=== PATIENT | male | born 1965 | race Caucasian/White ===

== ENCOUNTER 2021-10-26 14:36 | Observation (INO) ==
--- NOTE | 2021-10-26 16:18 | DR.GENAD ---
HPI Time Seen Time Seen by Provider: 10/26/21 16:16 PCP Primary Care Physician: ALEX ROSAS Complaint/Symptoms Chief Complaint Doctors Comments: patient c/o r flank and rlq pain for one week. HAD FEVER YESTERDAY. WAS SEEN BY PCP THIS AM AND TOLD TO GO TO ER FOR FURTHER EVALUTION. Chief Complaint:: PT C/O 1 WEEK HISTORY OF RIGHT FLANK PAIN DESCRIBED CONSTANT ACHING THAT IS WORSE WITH MOVEMENT AND IS ASSOCIATED WITH NAUSEA, VOMITING, AND CONSTIPATION WELL INTERMITTENT FEVER UP TO 104.1 COVID-19 Coronavirus risk:travel/contact w/high risk person: No Has patient experienced Coronavirus symptoms: No Source History Provided: Patient Mode of Arrival Mode of Arrival: Ambulatory Timing Onset of Chief Complaint: 10/26/21 PMH PMH Past Medical History: Yes Past Medical History: Arthritis Past Surgical History: Yes Surgical History: Ortho Surgery Family History History of Family Medical Conditions: Yes Family Medical History: OR and Coronary Artery Disease Social History Does patient currently use any type of tobacco product: Yes Have you used tobacco products in the last 12 months: Yes Type of Tobacco Use: Cigarettes Does any household member use tobacco: No Alcohol Use: Rarely Do you use any recreational Drugs:: No Lives With: Spouse Lives Where: Home Travel Risk Coronavirus risk:travel/contact w/high risk person: No Has patient experienced Coronavirus symptoms: No Infectious screening In the last 2 months have you had wt loss of >10#?: NO Have you had fever, night sweats or hemotysis?: No Have you traveled outside the country in the last 6 months?: No Isolation: Standard ROS Review of Systems Constitutional: Other (RLQ ABDOMINAL WITH REBOUND) Eyes: No Symptoms Reported ENTM: No Symptoms Reported Respiratoy: No Symptoms Reported Cardiovascular: No Symptoms Reported Gastrointestinal/Abdominal: Abdominal Pain and Nausea Genitourinary: No Symptoms Reported Neurological: No Symptoms Reported Musculoskeletal: No Symptoms Reported Integumentary: No Symptoms Reported Hematologic/Lymphatic: No Symptoms Reported Endocrine: No Symptoms Reported Psychiatric: No Symptoms Reported PE Vital Signs Vitals: Temperature 98.7 F Pulse Rate [Left] 87 Pulse Rate 80 Respiratory Rate 20 Blood Pressure [Left Arm] 151/65 Blood Pressure 147/70 O2 Sat by Pulse Oximetry 96 General Limitations: No Limitations General Appearance: In Distress (MODERATE DISTRESS) Head Head Exam: Normal Inspection Eyes Eye exam: Normal Appearance, PERRL and EOMI ENT ENT Exam: Normal Exam, Normal Oropharynx and Normal External Ear Exam TM/Canal Exam: Bilateral: Normal Nose Exam: Normal Nose Exam Mouth Exam: Normal Inspection Throat Exam: Normal Inspection Neck Neck Exam: Normal Inspection and Full ROM Chest Chest Inspection: Normal Inspection and Symmetric Chest Wall Rise Respiratory Respiratory Exam: Normal Lung Sounds Bilat Respiratory Exam: Bilateral: Clear to Auscultation Cardiovascular Cardiovascular Exam: Regular Rate and Normal Rhythm Abdominal Exam Abdominal Exam: Normal Bowel Sounds, Soft, Tenderness and Rebound Abdominal Tenderness: RLQ Extremities Extremities Exam: Normal Inspection and Full ROM Back Back Exam: Normal Inspection and Full ROM Neurologic Neurological Exam: Alert, Oriented X3 and CN II-XII Intact Skin Skin Exam: Warm, Dry and Intact MDM Differential Diagnosis Differential Diagnosis: APPENDICITIS,BOWEL OBSTRUCTION,CONSTIPATION COURSE Treatment Treatment: PATIENT WAS FOUND TO HAVE ACUTE APPENDICITIS ON CT OF ABDOMEN AND PELVIS. PATIENT WAS TOLD OF THE RESULTS AND TOLD OF THE INTENT TO CONTACT SURGEON KICK PRESS SETTER FOR FURTHER EVALUATION. THE PATIENT WAS AGREABLE TO THE INTENT. CONTACT WAS MADE WITH DR WHITE AT 830 PM AND HE STATED TO ADMIT THE PATEIENT BUT GET EKG AND CHEST XRAY AND START ON ZOSYN AND KEEP NPO. WILL START NACL AT 100CC/HR. ROR Labs Reviewed Laboratory Results Reviewed?: Yes Result Diagrams: 10/26/21 16:35 10/26/21 16:35 Laboratory: WBC 8.8 X10^3/uL (3.6-10.0) 10/26/21 16:35 RBC 4.36 X10^6/uL (4.7-6.0) L 10/26/21 16:35 Hgb 14.1 g/dL (13.5-18.0) 10/26/21 16:35 Hct 40.4 % (42.0-54.0) L 10/26/21 16:35 MCV 92.6 fL (80.0-100.0) 10/26/21 16:35 MCH 32.4 pg (27.0-34.0) 10/26/21 16:35 MCHC 35.0 g/dL (33.0-35.0) 10/26/21 16:35 RDW 13.1 % (11.6-16.5) 10/26/21 16:35 Plt Count 159 X10^3/uL (150.0-450.0) 10/26/21 16:35 MPV 9.3 fL (7.4-11.0) 10/26/21 16:35 Neut % (Auto) 66.3 % (42.0-75.0) 10/26/21 16:35 Lymph % (Auto) 24.8 % (21.0-51.0) 10/26/21 16:35 [place] % (Auto) 6.1 % (0.0-13.0) 10/26/21 16:35 Eos % (Auto) 1.8 % (0.9-2.9) 10/26/21 16:35 Baso % (Auto) 1.0 % (0.2-1.0) 10/26/21 16:35 Neut # (Auto) 5.8 x10^3/uL (2.2-4.8) H 10/26/21 16:35 Lymph # (Auto) 2.2 X10^3/uL (1.3-2.9) 10/26/21 16:35 [place] # (Auto) 0.5 x10^3/uL (0.3-0.8) 10/26/21 16:35 Eos # (Auto) 0.2 x10^3/uL (0.0-0.2) 10/26/21 16:35 Baso # (Auto) 0.1 X10^3/uL (0.0-0.1) 10/26/21 16:35 Absolute Nucleated RBC 0.1 /100WBC 10/26/21 16:35 Sodium 138 mmol/L (136-145) 10/26/21 16:35 Corrected Sodium 138 mmol/L (136-145) 10/26/21 16:35 Potassium 3.7 mmol/L (3.5-5.1) 10/26/21 16:35 Chloride 103 mmol/L (98-107) 10/26/21 16:35 Carbon Dioxide 28.1 mmol/L (21-32) 10/26/21 16:35 BUN 12 mg/dL (7-18) 10/26/21 16:35 Creatinine 1.11 mg/dL (0.70-1.30) 10/26/21 16:35 Est GFR (MDRD) Af Amer > 60 (>60) 10/26/21 16:35 Est GFR (MDRD) Non-Af > 60 (>60) 10/26/21 16:35 Glucose 115 mg/dL (65-99) H 10/26/21 16:35 Calcium 8.1 mg/dL (8.5-10.1) L 10/26/21 16:35 Corrected Calcium 8.7 mg/dL (8.5-10.1) 10/26/21 16:35 Total Bilirubin 0.30 mg/dL (0.2-1.0) 10/26/21 16:35 AST 26 Units/L (15-37) 10/26/21 16:35 ALT 43 Units/L (12-78) 10/26/21 16:35 Alkaline Phosphatase 86 Units/L (46-116) 10/26/21 16:35 Total Protein 7.1 g/dL (6.4-8.2) 10/26/21 16:35 Albumin 3.2 g/dL (3.4-5.0) L 10/26/21 16:35 Globulin 3.9 g/dL (2.5-4.5) 10/26/21 16:35 Albumin/Globulin Ratio 0.8 Ratio (1.1-2.1) L 10/26/21 16:35 Amylase 48 Units/L (25-115) 10/26/21 16:35 Lipase 186 Units/L (73-393) 10/26/21 16:35 Specimen Type Clean catch urine 10/26/21 16:58 Urine Color Yellow (YELLOW) 10/26/21 16:58 Urine Appearance Clear (CLEAR) 10/26/21 16:58 Urine pH 5.0 (5.0 - 8.0) 10/26/21 16:58 Ur Specific [place] 1.025 (1.000-1.030) 10/26/21 16:58 Urine Protein 1+ (NEGATIVE) 10/26/21 16:58 Urine Glucose (UA) Negative (NEGATIVE) 10/26/21 16:58 Urine Ketones 1+ (NEGATIVE) 10/26/21 16:58 Urine Blood 1+ (NEGATIVE) 10/26/21 16:58 Urine Nitrite Negative (NEGATIVE) 10/26/21 16:58 Urine Bilirubin Negative (NEGATIVE) 10/26/21 16:58 Urine Urobilinogen Normal (NORMAL) 10/26/21 16:58 Ur Leukocyte Esterase 1+ (NEGATIVE) 10/26/21 16:58 Urine RBC 3-5 /HPF (0-3) A 10/26/21 16:58 Urine WBC 0-2 /HPF (0-5) 10/26/21 16:58 Ur Squamous Epith Cells Rare /HPF (NEGATIVE) 10/26/21 16:58 Calcium Oxalate Crystal Rare /HPF (NEGATIVE) 10/26/21 16:58 Urine Bacteria Negative /HPF (NEGATIVE) 10/26/21 16:58 Urine Mucus Rare /HPF (NEGATIVE) 10/26/21 16:58 Ur Culture Indicated? No/not indicated 10/26/21 16:58 Opioid Opioid Risk Tool Age (Raymundo box if 16-45): No History of Preadolescent Sexual Abuse: No Total: 0 Total Score Risk Category: Low Risk Copyright: Carlos SOOD predicting aberrant behaviors Discharge Plan Diagnosis Discharge Problem: Acute appendicitis Discharge Plan Patient Disposition: ADMITTED INPATIENT Condition: Stable Prescriptions: No Action gabapentin 300 mg capsule 1 cap PO PRN PRN hydroxyzine HCl 25 mg tablet 1 tab PO PRN PRN Victoza 2-Cristian 0.6 mg/0.1 mL (18 mg/3 mL) Pen Injector 1.2 mg SUBCUT QAM Health Concerns: Post Hospitalization: new medications and changes needed to prevent readmission or further decline. Pt educated and given instructions on all concerns. Plan of Treatment: Continue with present treatment and follow up plan. Pt is to keep follow up appointment as instructed and take medications as ordered. Orders to Discharge Patient Discharge Orders: Transfer (Routine); Ordered 10/26/21 Ordered By: Jacob Walls Follow ups/Referrals Follow ups/Referrals: ALEX ROSAS [Primary Care Provider] - 3 days Instructions Stand Alone Forms: Precautions for COVID19, [facility], Patient Portal, Social Distancing
[2021-10-26 16:52] LABS: BASOPHILS # (AUTO) 0.1 X10^3/uL (0.0-0.1); EOSINOPHILS # (AUTO) 0.2 x10^3/uL (0.0-0.2); EOSINOPHILS % (AUTO) 1.8 % (0.9-2.9); HEMATOCRIT 40.4 % (42.0-54.0); HEMOGLOBIN 14.1 g/dL (13.5-18.0); LYMPHOCYTES # (AUTO) 2.2 X10^3/uL (1.3-2.9); LYMPHOCYTES % (AUTO) 24.8 % (21.0-51.0); MEAN CORPUSCULAR HEMOGLOBIN 32.4 pg (27.0-34.0); MEAN CORPUSCULAR VOLUME 92.6 fL (80.0-100.0); MEAN PLATELET VOLUME 9.3 fL (7.4-11.0); MONOCYTES # (AUTO) 0.5 x10^3/uL (0.3-0.8); MONOCYTES % (AUTO) 6.1 % (0.0-13.0); NEUTROPHILS # (AUTO) 5.8 x10^3/uL (2.2-4.8); NEUTROPHILS % (AUTO) 66.3 % (42.0-75.0); RED BLOOD COUNT 4.36 X10^6/uL (4.7-6.0); RED CELL DISTRIBUTION WIDTH 13.1 % (11.6-16.5); WHITE BLOOD COUNT 8.8 X10^3/uL (3.6-10.0)
[2021-10-26 17:04] LABS: ALANINE AMINOTRANSFERASE 43 Units/L (12-78); ALBUMIN 3.2 g/dL (3.4-5.0); ALKALINE PHOSPHATASE 86 Units/L (46-116); AMYLASE 48 Units/L (25-115); ASPARTATE AMINO TRANSFERASE 26 Units/L (15-37); BLOOD UREA NITROGEN 12 mg/dL (7-18); CALCIUM 8.1 mg/dL (8.5-10.1); CARBON DIOXIDE 28.1 mmol/L (21-32); CHLORIDE 103 mmol/L (98-107); COR CA(FOR HYPOALB) 8.7 mg/dL (8.5-10.1); COR NA(FOR HYPERGLY) 138 mmol/L (136-145); CREATININE 1.11 mg/dL (0.70-1.30); LIPASE 186 Units/L (73-393); SODIUM 138 mmol/L (136-145); TOTAL PROTEIN 7.1 g/dL (6.4-8.2); eGFR NON BLACK RACES > 60 (>60)
[2021-10-26 17:34] LABS: BILIRUBIN,URINE NEGATIVE (NEGATIVE); BLOOD/HEMOGLOBIN,URINE 1+ (NEGATIVE); GLUCOSE, URINE NEGATIVE (NEGATIVE); KETONES,URINE 1+ (NEGATIVE); LEUKOCYTE ESTERASE ,URINE 1+ (NEGATIVE); NITRITES,URINE NEGATIVE (NEGATIVE); PROTEIN,URINE 1+ (NEGATIVE); UROBILINOGEN,URINE NORMAL (NORMAL)
[2021-10-26 17:47] LABS: APPEARANCE,URINE CLEAR (CLEAR); BACTERIA,URINE NEGATIVE /HPF (NEGATIVE); COLOR,URINE YELLOW (YELLOW); SQUAMOUS EPITHELIAL CELL,UR RARE /HPF (NEGATIVE)
[2021-10-26 17:48] LABS: CALCIUM OXALATE CRYSTALS,UR RARE /HPF (NEGATIVE)
[2021-10-26] MEDS ORDERED: NS 100 ML IV 100 ML ONE ×2 (18:23→20:55)
--- NOTE | 2021-10-26 20:07 | CT ---
HISTORYC/O 1 WEEK HISTORY OF RIGHT FLANK PAIN DESCRIBED CONSTANT ACHING THAT IS WORSE WITH MOVEMENT AND IS ASSOCIATED WITH NAUSEA, VOMITING, AND CONSTIPATIONSTUDYABDOMEN/PELVIS WITH CONCOMPARISONNone.TECHNIQUESerial axial images were obtained from the lung bases to the pubic symphysis with the administration of intravenous and oral contrast. Soft tissue, lung windows and bone window images were interpreted. Dose reduction techniques were utilized.FINDINGSThe heart is not enlarged. The lung bases reveal a calcified granuloma of the left lung base.The liver is normal in size and reveals no focal lesions. There is no intrahepatic biliary ductal dilatation or obvious common bile duct dilatation. The gallbladder is unremarkable. The gallbladder reveals no radiopaque gallstones. The spleen is unremarkable, revealing no focal lesions. There is a small accessory spleen medial to the spleen. The pancreas and adrenal glands are unremarkable.The aorta and inferior vena cava are unremarkable. No significant para-aortic or retroperitoneal lymphadenopathy is identified.The kidneys are unremarkable. There are no radiopaque renal, ureteric or urinary bladder calculi. There is no hydronephrosis. There is no obstructive uropathy.Examination of the bowel, greater omentum and mesentery reveals the appendix is swollen measuring 1.3 cm in thickness with periappendiceal inflammatory changes extending along the right lower quadrant consistent with acute appendicitis. Scattered shotty right lower quadrant reactive lymphadenopathy is noted. Scattered diverticular disease of the transverse colon and sigmoid colon is noted. Examination of the pelvis reveals no pathologic masses or fluid collections. The urinary bladder is unremarkable. There are prostate gland calcifications noted. There are pelvic phleboliths. There is a small umbilical hernia with herniation of omental fat through the defect. There is a tiny right of midline ventral abdominal wall hernia with herniation of omental fat through the defect.There is posterior lumbosacral interbody fusion of L4, L5 and S1. There are bilateral laminectomy defects involving L4-5 and L5-S1.IMPRESSIONAcute appendicitis without perforation or abscess formation.Electronically signed by: Marilu Emery (Oct 26, 2021 20:06:29)
[2021-10-26] MEDS ORDERED: NS 1,000 ML IV 1,000 ML ONE (20:55)
[2021-10-26] MEDS ORDERED: ZOSYN VIAL 3.375 GRAMS IV ONE (20:55)
[2021-10-26] MEDS: NS 1,000 ML IV 1,000 ML IV SCH (21:04)
[2021-10-26] MEDS: ZOSYN VIAL 3.375 GRAMS 3.375 G in NS 100 ML IV 100 ML IV SCH ×2 (21:05→21:06)
[2021-10-26 22:22] VITALS: BMI 38.5
--- NOTE | 2021-10-26 23:00 | RAD ---
PROCEDURE: Chest X-ray 1 View .HISTORY: Preoperative study for with right flank pain and constipation.TECHNIQUE: AP view .COMPARISON: None .TECHNICAL QUALITY: Satisfactory .FINDINGS:Normal size heart .Mediastinum and hilar regions show no masses or lymphadenopathy .Normal central vascularity .No pulmonary consolidation, masses, pleural fluid, or pneumothorax .No acute bony abnormality .IMPRESSION:No active cardiopulmonary disease .Electronically signed by: Garland Govea (Oct 26, 2021 22:58:27)
[2021-10-27] MEDS: ZOSYN VIAL 3.375 GRAMS 3.375 G in NS 100 ML IV 100 ML IV SCH (05:04)
[2021-10-27 05:40] LABS: BASOPHILS % (AUTO) 0.5 % (0.2-1.0); EOSINOPHILS # (AUTO) 0.1 x10^3/uL (0.0-0.2); EOSINOPHILS % (AUTO) 1.9 % (0.9-2.9); HEMATOCRIT 38.9 % (42.0-54.0); HEMOGLOBIN 13.6 g/dL (13.5-18.0); LYMPHOCYTES # (AUTO) 2.2 X10^3/uL (1.3-2.9); LYMPHOCYTES % (AUTO) 28.9 % (21.0-51.0); MEAN CORPUSCULAR HGB CONC 34.9 g/dL (33.0-35.0); MEAN CORPUSCULAR VOLUME 91.7 fL (80.0-100.0); MEAN PLATELET VOLUME 9.5 fL (7.4-11.0); MONOCYTES # (AUTO) 0.6 x10^3/uL (0.3-0.8); NEUTROPHILS # (AUTO) 4.5 x10^3/uL (2.2-4.8); NEUTROPHILS % (AUTO) 60.7 % (42.0-75.0); RED BLOOD COUNT 4.24 X10^6/uL (4.7-6.0); RED CELL DISTRIBUTION WIDTH 13.1 % (11.6-16.5); WHITE BLOOD COUNT 7.5 X10^3/uL (3.6-10.0)
[2021-10-27 05:59] LABS: ALANINE AMINOTRANSFERASE 39 Units/L (12-78); ALKALINE PHOSPHATASE 79 Units/L (46-116); ASPARTATE AMINO TRANSFERASE 21 Units/L (15-37); BLOOD UREA NITROGEN 10 mg/dL (7-18); CALCIUM 7.8 mg/dL (8.5-10.1); CARBON DIOXIDE 30.2 mmol/L (21-32); CHLORIDE 103 mmol/L (98-107); COR CA(FOR HYPOALB) 8.6 mg/dL (8.5-10.1); SODIUM 140 mmol/L (136-145); TOTAL PROTEIN 6.7 g/dL (6.4-8.2); eGFR NON BLACK RACES > 60 (>60)
[2021-10-27] MEDS ORDERED: QUELICIN (OR ANECTINE) ONE (08:53)
[2021-10-27] MEDS ORDERED: VERSED ONE (08:53)
[2021-10-27] MEDS ORDERED: FENTANYL VIAL INJ 100 mcg ONE ×2 (08:53→09:47)
[2021-10-27] MEDS ORDERED: ZEMURON 100 MG VIAL ONE (08:53)
[2021-10-27] MEDS ORDERED: ZOFRAN INJ 4 MG VIAL ONE ×2 (08:54→16:44)
[2021-10-27] MEDS ORDERED: DIPRIVAN VIAL 20 ML ONE (08:54)
[2021-10-27] MEDS ORDERED: BRIDION ONE (08:54)
[2021-10-27] MEDS ORDERED: NS 1,000 ML IV 1,000 ML ONE (09:04)
[2021-10-27] MEDS ORDERED: BACTROBAN TOPICAL OINT ONE (09:04)
[2021-10-27] MEDS ORDERED: SUPRANE ONE (09:15)
[2021-10-27] MEDS: PROTONIX INJ 40 MG VIAL IVP SCH (09:16)
[2021-10-27] MEDS ORDERED: POTASSIUM CHLORIDE LIQ 20 MEQ UDC PO PRN (09:34)
[2021-10-27] MEDS ORDERED: POTASSIUM CHL 40 MEQ/NS 0.45% 500 ML IV PRN (09:34)
[2021-10-27] MEDS ORDERED: POTASSIUM CHL 60 MEQ/NS 0.45% 500 ML IV PRN (09:34)
[2021-10-27] MEDS ORDERED: MAGNESIUM SULFATE 1 GRAM/100 mL PREMIX 1 G/100 ML BAG IV PRN (09:34)
[2021-10-27] MEDS ORDERED: KLOR-CON PO PRN (09:34)
[2021-10-27] MEDS ORDERED: K-DUR TAB 20 MEQ PO PRN (09:34)
[2021-10-27] MEDS ORDERED: K-RIDER 10 MEQ/NS 100 ML 10 MEQ/100 ML BAG IV PRN (09:34)
[2021-10-27] MEDS ORDERED: MICRO K EXTEN CAP 10 MEQ PO PRN (09:34)
[2021-10-27] MEDS ORDERED: TORADOL 30 MG VIAL ONE (09:41)
[2021-10-27] MEDS ORDERED: REGLAN INJ 10 MG VIAL IVP PRN (10:26)
[2021-10-27] MEDS ORDERED: BENADRYL INJ 50 MG VIAL IVP PRN (10:26)
[2021-10-27] MEDS ORDERED: ZOFRAN INJ 4 MG VIAL IVP PRN ×2 (10:26→16:34)
[2021-10-27] MEDS ORDERED: DILAUDID INJ IVP PRN (10:26)
[2021-10-27] MEDS ORDERED: PHENERGAN INJ 25 MG IM PRN (10:26)
[2021-10-27] MEDS ORDERED: BARHEMSYS INJ IVP PRN (10:26)
[2021-10-27] MEDS: DILAUDID INJ IVP PRN ×2 (14:00→21:25)
[2021-10-27] MEDS: D5 1/2 NS 1,000 ML 1,000 ML IV SCH (15:19)
[2021-10-27] MEDS: ZOSYN VIAL 3.375 GRAMS 3.375 G in NS 100 ML IV + SPIKE MINIBAG* 100 ML IV SCH ×2 (15:33→23:34)
[2021-10-27] MEDS ORDERED: ZOSYN VIAL 3.375 GRAMS IV ONE (23:20)
[2021-10-27] MEDS ORDERED: NS 100 ML IV 100 ML ONE (23:20)
[2021-10-27] MEDS: NS 1,000 ML IV 1,000 ML IV SCH (23:36)
[2021-10-28] MEDS: NS 1,000 ML IV 1,000 ML IV SCH (01:04)
[2021-10-28] MEDS: D5 1/2 NS 1,000 ML 1,000 ML IV SCH ×2 (01:06→06:05)
[2021-10-28 04:11] VITALS: BP 120/58
[2021-10-28] MEDS ORDERED: ZOSYN VIAL 3.375 GRAMS IV ONE (04:58)
[2021-10-28] MEDS ORDERED: NS 100 ML IV 100 ML ONE (04:58)
[2021-10-28] MEDS: DILAUDID INJ IVP PRN (05:17)
[2021-10-28] MEDS: ZOSYN VIAL 3.375 GRAMS 3.375 G in NS 100 ML IV + SPIKE MINIBAG* 100 ML IV SCH (05:19)
[2021-10-28 05:36] LABS: BASOPHILS % (AUTO) 0.5 % (0.2-1.0); EOSINOPHILS # (AUTO) 0.1 x10^3/uL (0.0-0.2); EOSINOPHILS % (AUTO) 1.6 % (0.9-2.9); HEMATOCRIT 37.1 % (42.0-54.0); HEMOGLOBIN 12.7 g/dL (13.5-18.0); LYMPHOCYTES # (AUTO) 2.1 X10^3/uL (1.3-2.9); LYMPHOCYTES % (AUTO) 27.3 % (21.0-51.0); MEAN CORPUSCULAR HEMOGLOBIN 31.8 pg (27.0-34.0); MEAN CORPUSCULAR HGB CONC 34.2 g/dL (33.0-35.0); MEAN CORPUSCULAR VOLUME 92.9 fL (80.0-100.0); MEAN PLATELET VOLUME 9.1 fL (7.4-11.0); MONOCYTES # (AUTO) 0.5 x10^3/uL (0.3-0.8); MONOCYTES % (AUTO) 7.2 % (0.0-13.0); NEUTROPHILS # (AUTO) 4.8 x10^3/uL (2.2-4.8); NEUTROPHILS % (AUTO) 63.4 % (42.0-75.0); RED BLOOD COUNT 3.99 X10^6/uL (4.7-6.0); WHITE BLOOD COUNT 7.6 X10^3/uL (3.6-10.0)
[2021-10-28 06:05] LABS: ALANINE AMINOTRANSFERASE 36 Units/L (12-78); ALBUMIN 2.9 g/dL (3.4-5.0); ALKALINE PHOSPHATASE 74 Units/L (46-116); ASPARTATE AMINO TRANSFERASE 22 Units/L (15-37); BLOOD UREA NITROGEN 9 mg/dL (7-18); CALCIUM 7.7 mg/dL (8.5-10.1); CHLORIDE 104 mmol/L (98-107); COR CA(FOR HYPOALB) 8.6 mg/dL (8.5-10.1); CREATININE 1.14 mg/dL (0.70-1.30); SODIUM 140 mmol/L (136-145); TOTAL PROTEIN 6.4 g/dL (6.4-8.2); eGFR NON BLACK RACES > 60 (>60)
[2021-10-28] MEDS: PROTONIX INJ 40 MG VIAL IVP SCH (08:45)
== END 2021-10-28 09:30 | disposition home or self-care (01) ==
LOC: ER 14:36 → MED/SURG 21:02 → INTOOBSV 21:02 → MED/SURG 21:22
PROVIDERS: ADMIT Surgery; ATTEND Surgery
PROC: APPYLAP (ICD-10-PCS; 2021-10-27 09:15)
DX: Z66 Do not resuscitate; R10.84 Generalized abdominal pain; K35.80 Unspecified acute appendicitis; E11.65 Type 2 diabetes mellitus with hyperglycemia; Z20.822 Contact with and (suspected) exposure to COVID-19; E66.9 Obesity, unspecified